=== PATIENT | male | born 1975 | race Caucasian/White ===

== ENCOUNTER 2021-01-05 01:17 | Emergency (ER) | payer BC, SELFPAY ==
[2021-01-05 01:21] VITALS: BP 156/93; PULSE 90; RESP 17; TEMP 36.4; O2SAT 99
[2021-01-05 01:33] VITALS: O2SAT 97
--- NOTE | 2021-01-05 02:07 | ED.SOB ---
HPI - SOB/Dyspnea General Chief Complaint: Shortness of Breath/Dyspnea Stated Complaint: Swollen tonsils, SOB Time Seen by Provider: 01/05/21 01:41 Source: patient History of Present Illness HPI Narrative: Patient presents with globus sensation in his throat. Patient reports he woke up in the middle of the night felt like he is having a hard time breathing he felt like his throat was closing up, patient took some Benadryl but was concerned so came to the ER for evaluation. Patient ports a history of the same symptoms are usually mild is able to manage them with Benadryl however today symptoms seem more severe and is concerned so came to the ER. Denies any rash itching nausea or vomiting denies any chest pain or cough. Denies sore throat or fevers he is unable to identify any clear triggering substances. Related Data Home Medications Medication Instructions Recorded Confirmed aspirin 81 mg PO DAILY 01/05/21 furosemide 01/05/21 phentermine mg 01/05/21 Allergies Allergy/AdvReac Type Severity Reaction Status Date / Time No Known Allergies Allergy Mild Verified 01/05/21 01:36 Review of Systems Review of Systems: CONSTITUTIONAL: Denies fever, chills, or sweats. EYES: Denies visual changes, redness, or discharge. ENT: Denies rhinorrhea, congestion, sore throat, or otalgia. CARDIOVASCULAR: Denies chest pain, palpitations, or edema. RESPIRATORY: Denies cough. GASTROINTESTINAL: Denies abdominal pain, nausea, vomiting, or diarrhea. GENITOURINARY: Denies dysuria or hematuria. SKIN: Denies rash or itching. MUSCULOSKELETAL: Denies back pain, joint pain, or myalgia. NEUROLOGIC: Denies headache, numbness, dizziness, or weakness. PSYCHIATRIC: Denies anxiety or depression. All systems reviewed & are unremarkable except as noted in HPI and below Exam Narrative: GENERAL: Obese well-appearing, well-nourished, and in no acute distress. HEAD: Normocephalic, atraumatic. EYES: PERRLA and EOMI. ENT: Nares clear, no rhinorrhea or epistaxis. Mucous membranes moist. Class III Mallampati mild erythema no exudates no uvular deviation NECK: Supple. No masses. No JVD CHEST: Clear to auscultation. No respiratory distress. No wheezes rales or rhonchi EXTREMITIES: Normal range of motion. No edema. SKIN: Warm, dry, no rash. NEURO: No focal deficits. Alert and oriented x3. PSYCH: Normal mood and affect. Course Reevaluation(s) Reevaluation #1: Patient reports feeling improved and would like to continue to monitor his symptoms at home. Given patient's improvement and stable vital signs throughout his ER stay he is appropriate for continued outpatient evaluation with PCP follow-up. Patient comfortable with outpatient plan. Date: 01/05/21 Time: 03:33 Vital Signs Vital signs: Vital Signs Temperature 36.4 C 01/05/21 01:21 Pulse Rate 90 01/05/21 01:21 Respiratory Rate 17 01/05/21 01:21 Blood Pressure 156/93 H 01/05/21 01:21 Pulse Oximetry 99 01/05/21 01:21 Temperature 36.4 C 01/05/21 01:21 Pulse Rate 84 01/05/21 03:53 Respiratory Rate 19 01/05/21 03:53 Blood Pressure 135/95 H 01/05/21 03:53 Pulse Oximetry 100 01/05/21 03:53 MDM - SOB/Dyspnea MDM Narrative Medical decision making narrative: H&P as above, vss, pt looks clinically well, exam reassuring no wheezing or stridor appreciated, labs/img considered. symptomatic relief available as needed, on reevaluation pt continues to looks clinically well reporting improvement in symptoms. Symptoms remain of unclear etiology patient reports a history of these reactions usually responding to Benadryl symptoms may represent allergic reaction the patient was given EpiPen and steroids here and had improvement. Patient also reports symptoms tend to occur almost exclusively at night patient may have some underlying sleep disorder patient struck to follow-up with his primary care doctor discuss possible referral to allergy or ENT for further evaluation. dns pharyngitis perito
[2021-01-05] MEDS: EPINEPHrine HCL INJ 1 MG/ML AMPUL 0.3 MG IM (02:25)
[2021-01-05] MEDS: predniSONE 20 MG TABLET 40 MG PO (02:25)
[2021-01-05 02:45] VITALS: BP 142/108; PULSE 74; RESP 18; O2SAT 99
[2021-01-05 03:53] VITALS: BP 135/95; PULSE 84; RESP 19; O2SAT 100
== END 2021-01-05 03:54 | disposition home or self-care (01) ==
PROVIDERS: Emergency Provider Emergency Medicine; PCP Nurse Practitioner Family
DX: F45.8 Other somatoform disorders (principal); Z79.82 Long term (current) use of aspirin; R09.89 Other specified symptoms and signs involving the circulatory and respiratory systems
CPT/HCPCS: 96372; 99283; J0171; J7512

== ENCOUNTER 2021-05-23 10:56 | Outpatient (CLI) | payer BC, SELFPAY ==
--- NOTE | ~2021-05-23 | CT_ITS ---
EXAMINATION: CT abdomen pelvis w con EXAM DATE: 05/23/2021 11:20 INDICATION: RLQ pain . TECHNIQUE: Spiral CT of the abdomen and pelvis was performed following intravenous injection of 100 m L Omnipaque 350. Axial, coronal and sagittal images of the abdomen and pelvis were reviewed. The do se-length product (DLP) for this examination was 1211.78 mGy-cm. The exposure was tailored according to patient size (auto mA exposure control), and iterative reconstruction (ASIR) was used as addition al dose reduction technique. Comparison is made to prior examination from 02/24/2017. FINDINGS: The liver, spleen, adrenal glands and pancreas are unremarkable. Gallbladder is unremarkab le. No biliary obstruction. Portal and splenic veins are patent. Kidneys enhance symmetrically. T here is no hydronephrosis. The prostate is unremarkable. The bladder is unremarkable. There is no retroperitoneal or pelvic lymphadenopathy. The appendix is normal. There is mild to moderate scattered colonic diverticulosis. There is no mendel cent inflammatory change to suggest diverticulitis. There are surgical changes consistent with gastri c sleeve procedure. There is expected amount of colonic stool. No free intraperitoneal gas. The heart is normal in size. There are no pericardial or pleural effusions. The lung bases are unremark able. Subacute appearing right 3rd or 4th rib fracture anteriorly. There are no osteoblastic or osteo lytic lesions identified. IMPRESSION: 1. No acute intra-abdominal findings. 2. Mild to moderate colonic diverticulosis. Reviewed, dictated and finalized at location A. TROMECHANICAL TECHNICIAN
[2021-05-23 11:12] LABS: Estimated Glomerular Filt Rate > 60
== END 2021-05-23 10:57 ==
LOC: MICIMG 10:57
PROVIDERS: PCP Nurse Practitioner Family; Visit Provider Nurse Practitioner Family
DX: R10.31 Right lower quadrant pain (principal); K57.30 Diverticulosis of large intestine without perforation or abscess without bleeding
CPT/HCPCS: 74177; Q9967

== ENCOUNTER 2021-07-05 17:15 | Outpatient (CLI) | payer BC, SELFPAY ==
--- NOTE | ~2021-07-05 | XR_ITS ---
EXAMINATION: XR shoulder RT min 2V DATE: 07/05/2021 17:46 INDICATION: Right shoulder pain TECHNIQUE: AP internally and externally rotated, AP oblique and axillary views of the right shoulder were obtained. COMPARISON: None FINDINGS: Normal alignment. No fracture.Right glenohumeral and acromioclavicular osteoarthritis. Visualized po rtions of the right lung are clear. Soft tissues are unremarkable. IMPRESSION: Mild right acromioclavicular and glenohumeral osteoarthritis. Reviewed, dictated and finalized at location A. [employer]
--- NOTE | ~2021-07-05 | XR_ITS ---
EXAMINATION:XR cervical spine 4-5V DATE: 07/05/2021 17:46 INDICATION: Right shoulder pain TECHNIQUE: AP, lateral, lateral swimmers and odontoid views of the cervical spine are provided. COMPARISON: None FINDINGS: Likely positional straightening of the normal cervical lordosis. Vertebral body and disc heights are normal. Mild uncovertebral osteoarthritis at C3-C4 through C5-C6. Facet joints are unremarkable. [place] toid is intact. Normal atlantoaxial interval. Prevertebral soft tissues are normal. Visualized apic es of lungs are clear. IMPRESSION: Mild cervical uncovertebral osteoarthritis. Reviewed, dictated and finalized at location A. S DEPARTMENT MANAGER
== END 2021-07-05 17:16 ==
PROVIDERS: PCP Nurse Practitioner Family; Visit Provider Nurse Practitioner Family
DX: M19.011 Primary osteoarthritis, right shoulder (principal); M47.812 Spondylosis without myelopathy or radiculopathy, cervical region
CPT/HCPCS: 72050; 73030

== ENCOUNTER 2022-08-30 02:12 | Day surgery (SDC) | payer BC, SELFPAY ==
[2022-08-15 11:35] VITALS: BMI 51.7
--- NOTE | 2022-08-29 21:24 | PM.HPGS ---
History of Present Illness History of Present Illness Consent: Risks, benefits, and alternatives have been discussed and questions answered. Patient agrees to proceed with procedure. Chief complaint: rectal hemorrhage, melena Narrative: Casa Gruber is a 47 year old male referred because he had been ?passing dark red blood times 4 episodes one month ago. He has not seen any since.? he denies any associated nausea, vomiting, abdominal pain, or diarrhea during this time.? He takes a baby aspirin daily but no other blood thinners or NSAID use.? He reports 1-2 formed BM per week with no associated straining, hard stools, bloating or gas.? reports approximately a year ago that he had intermittent right lower quadrant pain and was told possible diverticulitis and to avoid eating nuts in which he has done. States he has not had RLQ pain since. Today in office he denies any GI symptoms currently. He denies any weight loss, or fevers. Family hx significant for paternal uncle with Colon cancer. Review of Systems Review of Systems: All systems reviewed & are unremarkable except as noted in HPI and below PMFSH Past Medical History Medical History Anemia Blood in stool Hepatitis B core antibody positive HTN (hypertension) Morbid obesity Surgical History Surgical History H/O gastric sleeve Social History Social History Smoking status: Never smoker Alcohol intake: current Alcohol use details: rarely Substance use type: does not use Living arrangements: with family Spiritual care concerns: No Meds Home Medications and Allergies Home Medications Medication Instructions Recorded Confirmed Type aspirin 81 mg tablet 81 mg PO DAILY 01/05/21 08/30/22 History furosemide 40 mg tablet 40 mg PO DAILY 01/05/21 08/30/22 History irbesartan 300 1 tablet PO DAILY 06/26/22 08/30/22 History mg-hydrochlorothiazide 12.5 mg tablet semaglutide (weight loss) 2.4 2.4 mg subcut WEEKLY 06/26/22 08/30/22 History mg/0.75 mL subcutaneous pen injector (Wegovy) Allergies Allergy/AdvReac Type Severity Reaction Status Date / Time No Known Allergies Allergy Mild Verified 05/05/23 06:25 Exam Const: General: alert Nutritional Appearance: obese Orientation/consciousness: patient oriented x3 Resp: Auscultation: clear to auscultation bilaterally Cardio: Rhythm: regular rhythm GI: GI Palp: Yes Soft to palpation and No Tenderness to palpation present (GI) Neuro: General: patient oriented x3 Assessment and Plan Assessment and plan (1) Blood in stool: Code(s): K92.1 - Melena Status: Acute Assessment and Plan: Colonoscopy with possible biopsy or polypectomy or cautery or injection of substances.
[2022-08-30 06:27] VITALS: BP 137/76; PULSE 86; RESP 20; TEMP 36.2; O2SAT 99; BMI 54.1
[2022-08-30] MEDS: LACTATED RINGERS 1,000 ML 150 ML IV CONT (06:31)
--- NOTE | 2022-08-30 07:23 | P.PNAN_ITS ---
Anes - Initial Pre Proc Eval Procedure: Operation Date: 08/30/22 07:30 Proposed Procedures p Colonoscopy - Edward Carballo MD Date/Time: 08/30/22 07:23 Surgeon: Edward Carballo MD Pre Op Diagnosis: rectal hemorrhage, melena Patient Data Age: 47 Gender: M Height: 1.75 m Weight: 166.4 kg Last Vital Signs Temp 97.2 F L 08/30/22 06:27 Pulse 86 08/30/22 06:27 Resp 20 08/30/22 06:27 BP 137/76 08/30/22 06:27 Pulse Ox 99 08/30/22 06:27 O2 Del Method Room Air 08/30/22 06:27 Allergies Allergy/AdvReac Type Severity Reaction Status Date / Time No Known Allergies Allergy Mild Verified 08/30/22 06:25 Home Medications Medication Instructions Recorded Confirmed Type aspirin 81 mg tablet 81 mg PO DAILY 01/05/21 08/30/22 History furosemide 40 mg tablet 40 mg PO DAILY 01/05/21 08/30/22 History irbesartan 300 1 tablet PO DAILY 06/26/22 08/30/22 History mg-hydrochlorothiazide 12.5 mg tablet semaglutide (weight loss) 2.4 2.4 mg subcut WEEKLY 06/26/22 08/30/22 History mg/0.75 mL subcutaneous pen injector (Wegovy) Patient hx anesthesia problems: none Family hx anesthesia problems: none Results Review: All pre-operative results and documents have been reviewed as part of the pre- operative evaluation. [facility] Past Medical History Medical History Anemia Blood in stool Hepatitis B core antibody positive HTN (hypertension) Morbid obesity Surgical History Surgical History H/O gastric sleeve Social History Social History Smoking status: Never smoker Alcohol intake: current Alcohol use details: rarely Substance use type: does not use Living arrangements: with family Spiritual care concerns: No Anes - Eval Final PreProcedure Day of Procedure 08/30/22 07:23 Patient weight: super morbidly obese Airway: Mallampati scale class III ASA classification: IV Anesthesia type and monitoring: general GIVS and standard monitoring Results Review: All pre-operative results and documents have been reviewed as part of the pre- operative evaluation. Informed Consent: The patient's anesthetic plan and its attendant risks and benefits were discussed with the patient/family/POA. Questions were solicited and answers provided to the satisfaction of the patient/family/POA.
[2022-08-30 07:51] VITALS: BP 149/92; PULSE 82; RESP 20; O2SAT 98
[2022-08-30 08:01] VITALS: BP 134/89; PULSE 80; RESP 20; O2SAT 99
[2022-08-30 08:11] VITALS: BP 143/71; PULSE 83; RESP 20; O2SAT 100
== END 2022-08-30 08:23 | disposition home or self-care (01) ==
PROVIDERS: PCP Nurse Practitioner Family; Visit Provider Internal Medicine Gastroenterology
PROC: 0DJD8ZZ Inspection of Lower Intestinal Tract, Via Natural or Artificial Opening Endoscopic (ICD-10-PCS; CPT 45378; principal; 2022-08-30 07:30)
DX: Z12.11 Encounter for screening for malignant neoplasm of colon (principal); K57.30 Diverticulosis of large intestine without perforation or abscess without bleeding; K92.1 Melena; I10 Essential (primary) hypertension; R76.8 Other specified abnormal immunological findings in serum; E66.01 Morbid (severe) obesity due to excess calories; Z68.43 Body mass index [BMI] 50.0-59.9, adult; Z79.82 Long term (current) use of aspirin; Z79.899 Other long term (current) drug therapy; Z98.84 Bariatric surgery status
CPT/HCPCS: 45378; J2704; J7120

== ENCOUNTER 2023-01-18 11:17 | Outpatient (CLI) | payer BC, SELFPAY ==
--- NOTE | ~2023-01-18 | US_ITS ---
US abdomen complete EXAMINATION: US Abdomen Complete INDICATION: Abdomen and epigastric pain PROCEDURE: Realtime High Resolution abdomen ultrasound. COMPARISON: No prior studies for comparison FINDINGS: Gallbladder within normal limits. No gallstones, pericholecystic fluid, gallbladder wall t hickening or biliary dilatation. Common bile duct measures 4 mm. Liver echotexture is increased, consistent with fatty infiltration.. Pancreas is obscured by bowel ga s. Spleen is unremarkeable. Renal echotexture is within normal limits bilaterally without hydronephro sis, contour deforming mass or renal stone. Right kidney measures 11.4 cm. Left kidney measures 11.3 cm. Visualized aspects of the aorta and IVC are within normal limits. Portal vein is patent. No sonograph ic Pinedo's sign indicated by the technologist. IMPRESSION: 1: Hepatic steatosis. Reviewed, dictated and finalized at location A. IMPRESSION: 1: Hepatic steatosis.
== END 2023-01-18 11:18 ==
PROVIDERS: PCP Nurse Practitioner Family; Visit Provider Nurse Practitioner Family
DX: R10.9 Unspecified abdominal pain (principal); K76.0 Fatty (change of) liver, not elsewhere classified
CPT/HCPCS: 76700

== ENCOUNTER 2023-02-20 15:16 | Outpatient (CLI) | payer BC, SELFPAY ==
[2023-02-20 15:32] LABS: Basophils Absolute Auto 0.1 K/mm3 (0.0-0.1); Basophils Percent Auto 0.8 % (0.2-1.2); Eosinophils Absolute Auto 0.2 K/mm3 (0-0.3); Eosinophils Percent Auto 2.1 % (0-4.4); Hemoglobin 13.8 g/dL (14.0-18.0); Immature Granulocyte Absolute 0.05 K/mm3 (0.00-0.031); Immature Granulocyte Percent A 0.5 % (0-0.5); Lymphocytes Absolute Auto 1.68 K/mm3 (0.9-3.2); Lymphocytes Percent Auto 16.3 % (18.3-44.2); Mean Corpuscular HGB Conc 32.9 g/dl (32-36); Mean Corpuscular Volume 88.2 fl (80-100); Mean Platelet Volume 8.9 fl (7.4-10.4); Monocytes Absolute Auto 0.8 K/mm3 (0.1-0.6); Monocytes Percent Auto 7.4 % (2.6-8.5); Neutrophils Absolute Auto 7.5 K/mm3 (1.3-6.7); Neutrophils Percent Auto 72.9 % (45.5-73.1); Platelet Count Result 360 k/mm3 (150-375); Red Blood Count 4.76 M/mm3 (4.6-6.20); Red Cell Distribution Width 13.6 % (11.5-14.5); White Blood Count 10.3 K/mm3 (4.5-10.0)
[2023-02-20 16:36] LABS: Iron 55 ug/dL (49-181)
[2023-02-20 16:38] LABS: Alanine Aminotransferase 28 U/L (6-50); Albumin Level 4.1 g/dL (3.5-5.1); Alkaline Phosphatase 99 U/L (38-126); Anion Gap 10 mmol/L (8-16); Aspartate Amino Transferase 21 U/L (17-59); Bilirubin,Total 0.4 mg/dL (0.2-1.3); Blood Urea Nitrogen 20 mg/dL (9-20); Calcium 8.7 mg/dL (8.4-10.2); Carbon Dioxide 26 mmol/L (22-30); Chloride 100 mmol/L (98-107); Estimated Glomerular Filt Rate > 60; Glucose 118 mg/dL (65-110); Potassium 3.9 mmol/L (3.4-5.0); Sodium 136 mmol/L (137-145)
[2023-02-20 16:46] LABS: Percent Iron Saturation 16 % (20-50)
[2023-02-20 18:25] LABS: Folic Acid 4.8 ng/mL (2.76->20)
[2023-02-23 22:38] LABS: Methylmalonic Acid 1480 nmol/L (87-318)
[2023-02-27 20:20] LABS: Soluble Transferrin Receptor 0.97 mg/L (0.76-1.76)
== END 2023-02-20 15:17 | disposition home or self-care (01) ==
PROVIDERS: PCP Nurse Practitioner Family; Visit Provider Internal Medicine Hematology & Oncology
DX: D64.9 Anemia, unspecified (principal)
CPT/HCPCS: 36415; 80053; 82607; 82728; 82746; 83540; 83550; 83921; 84238; 85025

== ENCOUNTER 2023-03-17 01:34 | Emergency (ER) | payer BC, SELFPAY ==
[2023-03-17 01:39] VITALS: BP 145/95; PULSE 98; RESP 20; TEMP 36.2; O2SAT 98
[2023-03-17 02:00] VITALS: O2SAT 97
--- NOTE | 2023-03-17 02:23 | ED.SOB ---
HPI - SOB/Dyspnea General Chief Complaint: Shortness of Breath/Dyspnea Stated Complaint: Trouble breathing, tonsil swelling Time Seen by Provider: 03/17/23 01:45 History of Present Illness HPI Narrative: Patient presents the emergency department from home. He woke up around 1:00 a.m. with a sensation of being unable to breathe and swallow. Feels like his tonsils are swollen. This happened once before he was given EpiPen to use home. He has not used an EpiPen tonight. Denies chest pain. Denies any recent additional positive review of systems Related Data Home Medications Medication Instructions Recorded Confirmed aspirin 81 mg tablet 81 mg PO DAILY 01/05/21 09/10/22 furosemide 40 mg tablet 40 mg PO DAILY 01/05/21 09/10/22 irbesartan 300 1 tablet PO DAILY 06/26/22 09/10/22 mg-hydrochlorothiazide 12.5 mg tablet semaglutide (weight loss) 2.4 2.4 mg subcut WEEKLY 06/26/22 09/10/22 mg/0.75 mL subcutaneous pen injector (Wegovy) Allergies Allergy/AdvReac Type Severity Reaction Status Date / Time No Known Allergies Allergy Mild Verified 03/17/23 01:43 Review of Systems Review of Systems: negative except for what is documented in the HPI [facility] Past Medical History Medical History Anemia Blood in stool Hepatitis B core antibody positive HTN (hypertension) Morbid obesity Surgical History Surgical History H/O gastric sleeve Social History Social History Smoking status: Never smoker Alcohol intake: current Alcohol use details: rarely Substance use type: does not use Living arrangements: with family Spiritual care concerns: No Exam Narrative: GENERAL: Well-appearing, well-nourished, and in no acute distress. HEAD: Normocephalic, atraumatic. EYES: PERRLA and EOMI. ENT: Nares clear, no rhinorrhea or epistaxis. Mucous membranes moist. enlarged uvula, tonsils normal NECK: Supple. CHEST: Clear to auscultation. No respiratory distress. HEART: Regular rate and rhythm. ABDOMEN: Soft, nontender, nondistended. EXTREMITIES: Normal range of motion. No edema. SKIN: Warm, dry, no rash. NEURO: No focal deficits. Alert and oriented x3. PSYCH: Normal mood and affect. Course Vital Signs Vital signs: Vital Signs Temperature 36.2 C L 03/17/23 01:39 Pulse Rate 98 03/17/23 01:39 Respiratory Rate 20 03/17/23 01:39 Blood Pressure 145/95 H 03/17/23 01:39 Pulse Oximetry 98 03/17/23 01:39 Oxygen Delivery Room Air 03/17/23 01:39 Temperature 36.2 C L 03/17/23 01:39 Pulse Rate 98 03/17/23 01:39 Respiratory Rate 20 03/17/23 01:39 Blood Pressure 145/95 H 03/17/23 01:39 Pulse Oximetry 97 03/17/23 02:00 Oxygen Delivery Room Air 03/17/23 02:00 MDM - SOB/Dyspnea MDM Narrative Medical decision making narrative: Patient is feeling much better. His voice also sounds better. Will DC with steroids and Benadryl. Shared decision making regarding following up with his primary care provider about recurrent symptoms as well as taking medications at home Discharge Plan Discharge Clinical Impression: Swollen uvula Patient Disposition: Home, Self-Care Condition: Stable Instructions: Antibiotic Form, Uvulitis (ED) Additional Instructions: Benadryl 25-50mg every 8 hours for uvula swelling Return to the ER for worsening symptoms Prescriptions: New prednisone 50 mg tablet 50 mg PO DAILY Qty: 4 0RF No Action Wegovy 2.4 mg/0.75 mL pen injector 2.4 mg subcut WEEKLY Patient Comments: on irbesartan-hydrochlorothiazide 300-12.5 mg tablet 1 tablet PO DAILY furosemide 40 mg tablet 40 mg PO DAILY aspirin 81 mg Tablet 81 mg PO DAILY Follow-up/Referrals: Brett,Joseline Godfrey, BRICK STACKER-BC [Primary Care Provider] -
[2023-03-17] MEDS: diphenhydrAMINE HCl INJ 50 MG/ML VIAL 25 MG IV PUSH (02:33)
[2023-03-17] MEDS: methylPREDNISolone SOD SUCC 125 MG VIAL IV PUSH (02:34)
[2023-03-17 02:35] VITALS: BP 117/97; PULSE 88; RESP 19; O2SAT 97
[2023-03-17 03:45] VITALS: BP 134/95; PULSE 99; RESP 14; O2SAT 99
== END 2023-03-17 04:55 | disposition home or self-care (01) ==
PROVIDERS: Emergency Provider Emergency Medicine; PCP Nurse Practitioner Family
DX: K12.2 Cellulitis and abscess of mouth (principal); D64.9 Anemia, unspecified; I10 Essential (primary) hypertension
CPT/HCPCS: 96374; 96375; 99284; J1200; J2930